=== PATIENT | male | born 1985 | race Caucasian/White ===

== ENCOUNTER 2017-03-04 14:41 | Emergency (ER) | payer OTHER ==
[~2017-03-04] VITALS: Ht 175.3 cm; Wt 108.3 kg
[~2017-03-04 14:41] MED LIST: ADVIN25/60 INH; ALBU1AER9 INH; ALLERGY MED OTC PO; BUPR-79 PO
[2017-03-04 14:44] VITALS: TEMP 36.8; Ht 175.3 cm; Wt 108.3 kg
[2017-03-04] MEDS ORDERED: ALBUTEROL 0.5% NEB SOLN 2.5 MG/0.5 ML VIAL INH ONE (17:03)
[2017-03-04] MEDS ORDERED: ALBUT/IPRATROP 3MG/0.5MG NEB 3 ML VIAL ONE (17:05)
[2017-03-04] MEDS ORDERED: METHYLPREDNISOLONE 125 MG VIAL IV STA (17:07)
[2017-03-04] MEDS ORDERED: SODIUM CHLORIDE 0.9% 1000ML 1,000 ML IV STA (17:07)
[2017-03-04] MEDS ORDERED: MAGNESIUM SULFATE 1GM / D5W 1 GM BAG IV STA (17:07)
--- NOTE | 2017-03-04 17:08 | EMERGENCY ROOM VISIT NOTE ---
History Report prepared by Shahnaz: Jose Angel Krishnamurthy Under the Supervision of: Dr. Fletcher Cronin M.D. First contact with patient: 16:47 Chief Complaint: SHORTNESS OF BREATH Stated Complaint: SOB, HEADACHE, SEVERE COUGHING Nursing Triage Summary: pt c/o SOB, severe coughing, headache, bodyaches. ongoing since last night. nonproductive cough. inhaler use at home, no relief. hx asthma History of Present Illness The patient is a 31 year old white male with a past medical history of asthma and pneumonia who presents to the ED with a cc of worsening shortness of breath since last night around 1999. Positive dry cough, headache, body aches. The patient states that he has had respiratory problems due to a chemical exposure at work (sodium bisulfate with possible mixing of bleach). The patient states that he has not had his flu shot this season. He has never had to be intubated before. He says that he has been using his inhaler without relief. Source of History: patient Onset: Last night around 1999 Position: other (global - SOB) Quality: other (hx of asthma) Timing: worsening Associated Symptoms: + headache, + cough (dry) Note: Positive body aches. Review of Systems See HPI for pertinent positives and negatives. A total of ten systems were reviewed and were otherwise negative. Past Medical & Surgical Medical Problems: (1) Asthma (2) Pneumonia Family History No pertinent family history Social History Smoking Status: Current Every Day Smoker Alcohol Use: occasionally Drug Use: none Occupation Status: employed Current/Historical Medications Scheduled Fluticasone Prop/Salmeterol (Advair Diskus 100/50 60 Dose), 1 PUFF INH BID Multivitamin (Multivitamin), 1 TAB PO DAILY Prednisone (Prednisone), 50 MG PO DAILY Scheduled PRN Albuterol Sulfate (Proair Respiclick), 2 PUFFS INH UD PRN for SOB/Wheezing Ibuprofen Tab (Advil), 400-600 MG PO Q6H PRN for Pain Triamcinolone Acetonide (Nasal (Nasacort Allergy 24Hr), 2 SPRAYS MINH DAILY PRN for Allergy Symptoms Allergies Coded Allergies: No Known Allergies (Unverified , 03/04/17) Physical Exam Vital Signs Date Time Temp Pulse Resp B/P (MAP) Pulse Ox O2 Delivery O2 Flow Rate FiO2 03/04/17 19:18 117 20 125/75 94 03/04/17 18:17 104 20 116/72 99 Room Air 03/04/17 17:33 114 22 99 Room Air 03/04/17 17:31 118 03/04/17 17:09 94 Room Air 03/04/17 16:51 121 28 141/100 96 Room Air 03/04/17 14:47 94 Room Air 03/04/17 14:44 36.8 118 20 159/78 94 Room Air Physical Exam GENERAL: Awake, alert, well-appearing, NAD HENT: Normocephalic, atraumatic. EYES: Normal conjunctiva. Sclera non-icteric. NECK: Supple. No nuchal rigidity. FROM. RESPIRATORY: Diffuse inspiratory and expiratory wheezing. Long expiratory phase. CARDIAC: Tachycardic but regular, no MRG ABDOMEN: Soft, NTND, BS+ MSK: No chest wall TTP, no LE edema NEURO: GCS 15, CN 2-12 intact, moves all 4s on command SKIN: No rash or jaundice noted. Tattoo on back. Medical Decision & Procedures ER Provider Diagnostic Interpretation: X-ray: Per my interpretation, radiologist review. CHEST ONE VIEW PORTABLE HISTORY: EVALUATE RESPIRATORY DISTRESS.DYSPNEA COMPARISON: Chest 08/20/2012. FINDINGS: The lungs are clear. Cardiac silhouette is normal in size. No pleural effusions. No pneumothorax. IMPRESSION: No acute process. Electronically signed by: Timoteo Sheldon M.D. 03/04/2017 5:24 PM Dictated Date/Time: 03/04/2017 5:23 PM Laboratory Results 03/04/17 17:00 Red Blood Count 5.11, Mean Corpuscular Volume 86.9, Mean Corpuscular Hemoglobin 31.3, Mean Corpuscular Hemoglobin Concent 36.0, Mean Platelet Volume 9.9, Neutrophils (%) (Auto) 69.2, Lymphocytes (%) (Auto) 21.0, Monocytes (%) (Auto) 7.6, Eosinophils (%) (Auto) 1.4, Basophils (%) (Auto) 0.5, Neutrophils # (Auto) 7.33, Lymphocytes # (Auto) 2.22, Monocytes # (Auto) 0.80, Eosinophils # (Auto) 0.15, Basophils # (Auto) 0.05 03/04/17 17:00 Test 03/04/17 17:00 White Blood Count 10.58 K/uL (4.8-10.8) Red Blood Count 5.11 M/uL (4.7-6.1) Hemoglobin 16.0 g/dL (14.0-18.0) Hematocrit 44.4 % (42-52) Mean Corpuscular Volume 86.9 fL (80-100) Mean Corpuscular Hemoglobin 31.3 pg (25-34) Mean Corpuscular Hemoglobin Concent 36.0 g/dl (32-36) Platelet Count 266 K/uL (130-400) Mean Platelet Volume 9.9 fL (7.4-10.4) Neutrophils (%) (Auto) 69.2 % Lymphocytes (%) (Auto) 21.0 % Monocytes (%) (Auto) 7.6 % Eosinophils (%) (Auto) 1.4 % Basophils (%) (Auto) 0.5 % Neutrophils # (Auto) 7.33 K/uL (1.4-6.5) Lymphocytes # (Auto) 2.22 K/uL (1.2-3.4) Monocytes # (Auto) 0.80 K/uL (0.11-0.59) Eosinophils # (Auto) 0.15 K/uL (0-0.5) Basophils # (Auto) 0.05 K/uL (0-0.2) RDW Standard Deviation 41.2 fL (36.4-46.3) RDW Coefficient of Variation 12.9 % (11.5-14.5) Immature Granulocyte % (Auto) 0.3 % Immature Granulocyte # (Auto) 0.03 K/uL (0.00-0.02) Anion Gap 8.0 mmol/L (3-11) Est Creatinine Clear Calc Drug Dose 157.4 ml/min Estimated GFR () 137.1 Estimated GFR (Non- 118.3 BUN/Creatinine Ratio 10.4 (10-20) Calcium Level 9.3 mg/dl (8.5-10.1) Laboratory results reviewed by me Medications Administered Medications (Trade) Dose Ordered Sig/Arthur Route Start Time Stop Time Status Last Admin Dose Admin Albuterol/ Ipratropium (Duoneb) 3 ml STK-MED ONCE .ROUTE 03/04/17 17:05 03/04/17 17:06 DC 03/04/17 17:05 3 ML Albuterol/ Ipratropium (Duoneb) 12 ml ONE ONCE INH 03/04/17 17:15 03/04/17 17:16 DC 03/04/17 17:33 12 ML Methylprednisolone Sodium Succinate (Solu-Medrol IV) 125 mg NOW STAT IV 03/04/17 17:07 03/04/17 17:10 DC 03/04/17 17:26 125 MG Sodium Chloride 1,000 ml @ 999 mls/hr Q1H1M STAT IV 03/04/17 17:07 03/04/17 18:07 DC 03/04/17 17:26 999 MLS/HR Magnesium Sulfate (Magnesium Sulfate) 1 gm NOW STAT IV 03/04/17 17:07 03/04/17 17:10 DC 03/04/17 17:26 1 GM ECG Indication: SOB/dyspnea Rate (beats per minute): 114 Rhythm: sinus tachycardia Findings: Q waves (V2), other (normal intervals, normal axis, no other STS changes or TWI) Change: Patient's electrocardiogram interpreted by me. ED Course 1702: The patient was evaluated in room A11B. A complete history and physical exam was performed. 1839: I reevaluated the patient and he is feeling better. 1840: I discussed the patient with Poison Control - they say to treat the symptoms, nothing else to do. 1904: I reevaluated the patient and he is feeling well. Discussed results and discharge instructions: he verbalized understanding and agreement. The patient is ready for discharge. Medical Decision The patient is a 31 year old white male with a past medical history of asthma and pneumonia who presents to the ED with a cc of worsening shortness of breath since last night around 1999. Positive dry cough, headache, body aches. Differential diagnosis: Etiologies such as infections, reactive airway disease, pneumonia, pneumothorax , COPD, CHF, cardiac ischemia, pulmonary embolism, musculoskeletal, gastrointestinal, as well as others were entertained. Patient was seen and evaluated the bedside. Patient does have known history of asthma and has had some worsening shortness of breath and wheezing. Patient states that he was doing some cleaning yesterday and had mixed to substances while cleaning which she think he may have inhaled and caused his wheezing. Patient did have blood work that was completed along with EKG, chest x-ray and the patient was given an hour-long DuoNeb, steroids, mag, and IV fluids. Upon reassessment after his hour-long the patient did have some mild tachycardia likely related to his DuoNeb. The patient's chest x-ray was clear. Patient's EKG did show sinus tachycardia. I believe this is most likely related to the noxious substance that he may have inhaled. I did speak with poison control about the substances that may been mixed together in the inhalation. They did recommend just treat the symptoms. No further management. Upon reassessment the patient was deemed suitable for outpatient follow-up and treatment. The patient was given a course of steroids and was told to use his inhalers as instructed over the next 4 days along with steroids. Patient was told to follow -up with his PCP in order to discuss the possibility of a nebulizer at home. Patient was deemed suitable for outpatient follow-up and treatment at this time. Patient was given strict follow-up, discharge, and return precautions. All questions were answered. Patient was deemed suitable for outpatient follow- up at this time. Patient agreed with the plan of care and was safely discharged home. The chart was completed utilizing [employer] Speech voice recognition software. Grammatical errors, random word insertions, pronoun errors, and incomplete sentences are an occasional consequence of this system due to software limitations, ambient noise, and hardware issues. Any formal questions or concerns about the content, text, or information contained within the body of this dictation should be directly addressed to the physician for clarification. Medication Reconcilliation Current Medication List: was personally reviewed by me Blood Pressure Screening Patient's blood pressure: Normal blood pressure Consults Time Called: 1839 Consulting Physician: Poison Control Returned Call: [phone] I discussed the patient with Poison Control - they say to treat the symptoms, nothing else to do. Impression Primary Impression: Asthma attack Scribe Attestation The scribe's documentation has been prepared under my direction and personally reviewed by me in its entirety. I confirm that the note above accurately reflects all work, treatment, procedures, and medical decision making performed by me. Departure Information Dispostion Home / Self-Care Prescriptions Prednisone (PREDNISONE) 50 Mg Tab 50 MG PO DAILY for 4 Days, #4 TAB Prov: Fletcher Cronin M.D. 03/04/17 Referrals No Doctor, Assigned (PCP) Patient Instructions Asthma - [facility], [facility] Additional Instructions Please return to the emergency department if you have worsening or recurrent symptoms not amenable to at-home treatment. Please call for a follow-up appointment with her primary care physician. Please take your medications as prescribed. If you have other concerns and/or complaints please feel free to also call your primary care physician's office or return the ED for further evaluation, management, and treatment. Please use your inhaler every 4 hours 2 puffs 1 day, then every 6 hours 1 puff the second day, then 1 puff every 4 hours third day, then 1 puff every 6 hours the 4th day. You may take 600 mg Ibuprofen every 6 hours as needed for pain with food for no more than 2 consecutive days. You may take tylenol 1000 mg every 6 hours as needed for pain. You may take motrin and tylenol separately or at the same time. Take your medications as prescribed. You have been examined and treated today on an emergency basis only. This is not a substitute for, or an effort to provide, complete comprehensive medical care. It is impossible to recognize and treat all injuries or illnesses in a single emergency department visit. It is therefore important that you follow up closely with [facility], your PCP, and/or your specialist(s). Call as soon as possible for an appointment. Thank you for your time and consideration. I look forward to speaking with you again soon. Please don't hesitate to call us if you have any questions. Problem Qualifiers Primary Impression: Asthma attack Asthma severity: mild Asthma persistence: intermittent Qualified Codes: J45.21 - Mild intermittent asthma with (acute) exacerbation
[2017-03-04 17:09] VITALS: O2SAT 94
[2017-03-04] MEDS ORDERED: ALBUT/IPRATROP 3MG/0.5MG NEB 3 ML VIAL INH ONE (17:15)
[2017-03-04 17:26] LABS: BASO % 0.5 %; BASO ABS # 0.05 K/uL (0-0.2); EOS % 1.4 %; EOS ABS # 0.15 K/uL (0-0.5); HEMATOCRIT 44.4 % (42-52); IG# 0.03 K/uL (0.00-0.02); LYMPH ABS # 2.22 K/uL (1.2-3.4); MEAN CELL VOLUME 86.9 fL (80-100); MEAN CORPUSCULAR HEMOGLOBIN 31.3 pg (25-34); MEAN PLATELET VOLUME 9.9 fL (7.4-10.4); MONO % 7.6 %; NEUT % 69.2 %; NEUT ABS # 7.33 K/uL (1.4-6.5); PLATELET COUNT 266 K/uL (130-400); RED CELL DISTRIBUTION WIDTH CV 12.9 % (11.5-14.5); RED CELL DISTRIBUTION WIDTH SD 41.2 fL (36.4-46.3); WHITE BLOOD COUNT 10.58 K/uL (4.8-10.8)
--- NOTE | 2017-03-04 17:26 | DIAGNOSTIC IMAGING REPORT ---
CHEST ONE VIEW PORTABLE HISTORY: EVALUATE RESPIRATORY DISTRESS.DYSPNEA COMPARISON: Chest 08/20/2012. FINDINGS: The lungs are clear. Cardiac silhouette is normal in size. No pleural effusions. No pneumothorax. IMPRESSION: No acute process. Electronically signed by: Timoteo Sheldon M.D. 03/04/2017 5:24 PM Dictated Date/Time: 03/04/2017 5:23 PM
[2017-03-04 17:33] VITALS: PULSE 114; O2SAT 99
[2017-03-04] MEDS ORDERED: ADVIN10/60 INH (17:53)
[2017-03-04] MEDS ORDERED: MULT-506 PO (17:53)
[2017-03-04] MEDS ORDERED: TRIA1SPR4 NAE (17:53)
[2017-03-04] MEDS ORDERED: ALBU18002 INH (17:53)
[2017-03-04 17:54] LABS: CALCIUM 9.3 mg/dl (8.5-10.1); CREATININE 0.84 mg/dl (0.60-1.40); POTASSIUM 3.6 mmol/L (3.5-5.1)
[2017-03-04] MEDS ORDERED: IBUP-103 PO (17:55)
[2017-03-04] MEDS ORDERED: PRED50TA PO (19:07)
[2017-03-04 19:18] VITALS: BP 125/75; PULSE 117; O2SAT 94
== END 2017-03-04 19:18 | disposition home or self-care (01) ==
LOC: C.EDB 14:42 → C.EDA 19:18
DX: J45.21 Mild intermittent asthma with (acute) exacerbation (principal); Z87.01 Personal history of pneumonia (recurrent); F17.210 Nicotine dependence, cigarettes, uncomplicated